=== PATIENT | female | born 1935 | race Two or more races ===

== ENCOUNTER 2020-11-30 14:50 | Inpatient (IN) | payer MEDICARE, OTHER ==
[~2020-11-30] VITALS: Ht 154.9 cm; Wt 68.0 kg
--- NOTE | 2020-12-01 01:10 | NUR ---
GPS ADMISSION NOTE ADMITTED AN 85-Y.O. FEMALE FROM [facility]. BROUGHT IN VIA [facility] BY [facility] PERSONNEL. ADMITTING DX: MAJOR DEPRESSION. PT WAS REPORTED TAKING 50 PILLS ON SUNDAY IN AN ATTEMPT TO END HER LIFE. PT STATED, "MY SIX KIDS HATE ME AND DON'T TALK TO ME BECAUSE I'M A BAD MOTHER. I HAVE NO REASON TO LIVE ANYMORE." PT REPORTED VERY DEPRESSED AND LONELY WITH NO SUPPORT SYSTEM. PT ALSO REPORTED IF SHE WERE TO GO HOME SHE WOULD TRY A DIFFERENT PILL TO KILL HERSELF BECAUSE THE FIRST ONE DID NOT WORK. UPON [id number] ASSESSMENT, PT EXPRESSED SHE REGRETS WHAT SHE HAD TRIED TO DO, SHE DENIES SUICIDAL IDEATION AT THIS TIME. SHE STATES, "I AM HERE TO HAVE TREATMENT FOR MY DEPRESSION." SKIN ASSESSMENT DONE. SKIN INTACT. PT ADVISED OF HER HOLD. BELONGINGS AND CONTRABAND CHECKED AND RECORDED. BOTH MD'S AWARE OF ADMISSION. SAFETY PRECAUTIONS IN PLACE. WILL CONTINUE TO MONITOR Q15MIN FOR SAFETY AND BEHAVIOR.
[2020-12-01 01:30] VITALS: BP 127/78
[2020-12-01] MEDS ORDERED: MAGNESIUM HYDROXIDE 30 ML UDC PO PRN (01:30)
[2020-12-01] MEDS ORDERED: BLOOD SUGAR DIAGNOSTIC 1 EACH STRIP IN ONE (01:30)
[2020-12-01] MEDS ORDERED: ACETAMINOPHEN 325 MG TABLET PO PRN (01:30)
[2020-12-01] MEDS ORDERED: TEMAZEPAM 7.5 MG CAPSULE PO PRN (01:30)
[2020-12-01] MEDS ORDERED: MAG HYDROX/AL HYDROX/SIMETH 30 ML UDC PO PRN (01:30)
[2020-12-01] MEDS ORDERED: ATOR10TA PO (02:01)
[2020-12-01] MEDS ORDERED: CLON1TAB12 PO (02:01)
[2020-12-01] MEDS ORDERED: GLYC1.5T4 PO (02:01)
[2020-12-01] MEDS ORDERED: VENL100T4 PO (02:01)
[2020-12-01] MEDS ORDERED: [UNRECOGNIZED DRUG - CODE] PO (02:01)
[2020-12-01] MEDS ORDERED: HYDR50TA61 PO (02:01)
[2020-12-01] MEDS ORDERED: SUCR1TAB31 PO (02:01)
[2020-12-01] MEDS ORDERED: LACT10SO69 PO (02:01)
[2020-12-01] MEDS ORDERED: OMEP20CA15 PO (02:01)
[2020-12-01] MEDS ORDERED: MELA5TAB PO (02:01)
[2020-12-01] MEDS: LORAZEPAM 0.5 MG TABLET PO PRN (02:25)
--- NOTE | 2020-12-01 02:27 | NUR ---
RN NOTE: ANXIETY PATIENT IS VERY RESTLESS, ANXIOUS, UNABLE TO CONTROL OVER THINKING, HYPERVERBAL, PATIENT REQUESTED TO TAKE MEDICINE TO HELP HER CALM DOWN. PRN ATIVAN 0.5 MG 1 TAB PO ADMINISTERED. WILL CONTINUE TO MONITOR.
[2020-12-01] MEDS ORDERED: LACTULOSE 10 G/15 ML UDC (PYXIS) PO PRN (03:00)
[2020-12-01 06:25] VITALS: BP 127/78
[2020-12-01 08:00] VITALS: BP 116/53
[2020-12-01] MEDS ORDERED: MAGNESIUM GLUCONATE 27 MG PO SCH ×2 (09:00)
[2020-12-01] MEDS: SUCRALFATE 1 G TABLET PO SCH ×4 (09:16→21:13)
[2020-12-01] MEDS: PANTOPRAZOLE 40 MG TABLET.DR PO SCH (09:16)
--- NOTE | 2020-12-01 10:29 | NUR ---
BARON Initial Discharge Plan: Patient currently lives at home [address] [place] [address] Dr Shai Mane, [place] [address]; ([phone]). Patient has a caregiver at home Machelle ([phone]). BARON contacted patient's caregiver Machelle ([phone]) to gather collateral. She stated that she works for pt through [employer] and provides care for 4-5 hours a day. She reported that she has been working for pt for a year and no family has been in contact with pt. She reported that it appears that pt has issues with family. Caregiver would want pt back home upon dc and stated that she will stay with pt and extend her hours. BARON will coordinate with MD and treatment plan to coordinate appropriate discharge.
--- NOTE | 2020-12-01 10:30 | NUR ---
Caregiver Contact: Patient has a caregiver at home Machelle ([phone]). SW contacted patient's caregiver Machelle ([phone]) to gather collateral. She stated that she works for pt through [employer] and provides care for 4-5 hours a day. She reported that she has been working for pt for a year and no family has been in contact with pt. She reported that it appears that pt has issues with family. Caregiver would want pt back home upon dc and stated that she will stay with pt and extend her hours.
[2020-12-01] MEDS: VENLAFAXINE XR 150 MG CAP.SR.24H PO SCH (13:48)
[2020-12-01 16:00] VITALS: BP 113/58
--- NOTE | 2020-12-01 19:01 | NUR ---
mayelin with desmond. requests.
[2020-12-01 20:00] VITALS: BP 97/42
[2020-12-01] MEDS: ATORVASTATIN 10 MG TABLET PO SCH (21:13)
[2020-12-02 07:07] LABS: BILIRUBIN,TOTAL 0.4 mg/dL (0.2-1.0); CALCIUM, SERUM 8.3 mg/dL (8.5-10.1); CREATININE 1.3 mg/dL (0.6-1.3); POTASSIUM 4.4 mmol/L (3.5-5.1); TOTAL PROTEIN, SERUM 5.9 g/dL (6.4-8.2)
[2020-12-02 07:20] LABS: CHOLESTEROL 193 mg/dL (<200); HDL CHOLESTEROL 52 mg/dL (40-60); LDL 116 mg/dL (0-99); TRIGLYCERIDES 123 mg/dL (30-150)
[2020-12-02 08:00] VITALS: BP 132/68
[2020-12-02] MEDS: SUCRALFATE 1 G TABLET PO SCH ×4 (08:16→21:21)
[2020-12-02] MEDS: VENLAFAXINE XR 150 MG CAP.SR.24H PO SCH (08:16)
[2020-12-02] MEDS: PANTOPRAZOLE 40 MG TABLET.DR PO SCH (08:16)
[2020-12-02] MEDS: MAGNESIUM OXIDE 400 MG TABLET PO SCH (09:06)
[2020-12-02 16:00] VITALS: BP 126/64
--- NOTE | 2020-12-02 19:46 | NUR ---
Patient is resting in bed peacefully. Chest rise and fall even and unlabored. no signs of distress. Will monitor for behaviors.
[2020-12-02 20:00] VITALS: BP 139/65
[2020-12-02] MEDS: ATORVASTATIN 10 MG TABLET PO SCH (21:21)
[2020-12-02] MEDS: LORAZEPAM 0.5 MG TABLET PO PRN (21:27)
--- NOTE | 2020-12-02 21:30 | NUR ---
Patient reports feeling scared but is unable to say why but her body can feel it. Given PRN ativan for anxiety. reassured patient that staff is here for anything she needs and will be checked on regularly. patient thanked staff for help. Denies SI at this time.
[2020-12-03] MEDS: SUCRALFATE 1 G TABLET PO SCH ×4 (08:16→21:10)
[2020-12-03] MEDS: PANTOPRAZOLE 40 MG TABLET.DR PO SCH (08:16)
[2020-12-03] MEDS: MAGNESIUM OXIDE 400 MG TABLET PO SCH (08:17)
[2020-12-03] MEDS: VENLAFAXINE XR 150 MG CAP.SR.24H PO SCH (08:17)
[2020-12-03 16:00] VITALS: BP 119/63
--- NOTE | 2020-12-03 19:30 | NUR ---
GPS RN NOTE, RECEIVED PATIENT AWAKE AND IN BED, NO S/S OR COMPLAINTS OF PAIN AT THIS TIME. PATIENT IS DISPLAYING NO S/S OF APPARENT DISTRESS AT THIS TIME. PATIENT BREATHING IS UNLABORED WITH EQUAL RISE AND FALL OF THE CHEST. PATIENT IS ALERT AND ORIENTED X 3 ON ROOM AIR WITH A SPO2 97%. PATIENT IS COMPLIANT WITH MEDICATIONS, ANXIOUS AT TIMES, AND COOPERATIVE. PATIENT DENIES SUICIDAL AND HOMICIDAL IDEATIONS AT THIS TIME. PATIENT ASSISTED WITH TURNING AND REPOSITIONING Q2HR AND PRN FOR COMFORT AND CIRCULATION. PATIENT HAS NO NEEDS AT THIS TIME. PATIENT EDUCATED ON THE USE OF THE CALL CHAIDEZ. PATIENT BED SIDE RAILS UP X 2 FOR SAFETY. PATIENT BED IS LOCKED, LOW, WITH BED ALARM ON. WILL CONTINUE TO MONITOR THIS PATIENT Q15 MINUTES WITH THE HELP OF STAFF TO MAINTAIN SAFETY.
[2020-12-03 20:33] VITALS: BP 150/70
[2020-12-03] MEDS ORDERED: MIRTAZAPINE 15 MG TABLET PO SCH (21:00)
[2020-12-03] MEDS: MIRTAZAPINE 15 MG TABLET PO SCH (21:09)
[2020-12-03] MEDS: ATORVASTATIN 10 MG TABLET PO SCH (21:10)
[2020-12-04 08:00] VITALS: BP 126/69
[2020-12-04] MEDS: SUCRALFATE 1 G TABLET PO SCH ×4 (08:02→21:29)
[2020-12-04] MEDS: PANTOPRAZOLE 40 MG TABLET.DR PO SCH (08:02)
[2020-12-04] MEDS: VENLAFAXINE XR 150 MG CAP.SR.24H PO SCH (08:41)
[2020-12-04] MEDS: MAGNESIUM OXIDE 400 MG TABLET PO SCH (08:41)
--- NOTE | 2020-12-04 09:00 | NUR ---
RN NOTE- PT CALM INTERACTIVE APPROPRIATE MED COMPLIANT CLEAN AND INTERACTIVE
[2020-12-04 16:00] VITALS: BP 119/62
--- NOTE | 2020-12-04 19:30 | NUR ---
GPS RN NOTES RECEIVED PATIENT ON BED,ISOLATED,KAVON,AMBULATE WITH STEADY GAIT,MED COMPLIANT,CONTINENT, BRP.WILL CONTINUE TO MONITOR BEHAVIOR
[2020-12-04 20:19] VITALS: BP 148/72
[2020-12-04] MEDS: ATORVASTATIN 10 MG TABLET PO SCH (21:29)
[2020-12-04] MEDS: MIRTAZAPINE 15 MG TABLET PO SCH (21:30)
--- NOTE | 2020-12-05 07:02 | NUR ---
GPS RN NOTES ASLEEP MOST OF THE NIGHT.
[2020-12-05 08:00] VITALS: BP 121/64
[2020-12-05] MEDS: VENLAFAXINE XR 150 MG CAP.SR.24H PO SCH (08:33)
[2020-12-05] MEDS: MAGNESIUM OXIDE 400 MG TABLET PO SCH (08:33)
[2020-12-05] MEDS: SUCRALFATE 1 G TABLET PO SCH ×4 (08:33→21:55)
[2020-12-05] MEDS: PANTOPRAZOLE 40 MG TABLET.DR PO SCH (08:33)
[2020-12-05 16:00] VITALS: BP 135/62
[2020-12-05 20:06] VITALS: BP 118/59
[2020-12-05] MEDS: MIRTAZAPINE 15 MG TABLET PO SCH (21:53)
[2020-12-05] MEDS: ATORVASTATIN 10 MG TABLET PO SCH (21:55)
[2020-12-05] MEDS: LORAZEPAM 0.5 MG TABLET PO PRN (22:01)
--- NOTE | 2020-12-05 22:01 | NUR ---
GPS RN NOTE - ANXIETY PT NOTED WITH ANXIETY AND AGITATION. PT STATED SHE IS UPSET AND " I DON'T BELONG HER. I AM DEPRESSED AND I WANT TO BE SOMEWHERE WITH PEOPLE OF ALL AGES." PER PT'S REQUEST SHE DOES NOT WANT TO TO BE IN CONTACT WITH ANY OF HER CHILDREN; ONLY WANTS TO SPEAK TO MIGUEL (LINE SERVICE TECHNICIAN). ADMINISTERED ATIVAN ORDERED. WILL REASSESS FOR ANXIETY AND AGITATION IN 30 MINUTES.
--- NOTE | 2020-12-06 06:19 | NUR ---
GPS RN NOTE PT A/OX2-3 WITH DISORGANIZED THOUGHTS. TOLERATING R/A WELL. THROUGHOUT NIGHT, PT SLEPT WELL. DENIES PAIN OR DISCOMFORT. ALL NEEDS MET AT THIS TIME. SAFETY MEASURES IN PLACE. PT IN STABLE CONDITION, WILL ENDORSE PLAN OF CARE TO ONCOMING MORNING RN.
--- NOTE | 2020-12-06 07:30 | NUR ---
PT RECEIVED RESTING COMFORTABLE IN BED. NO S/S OR C/O PAIN OR DISTRESS NOTED. SIDE RAILS UP X2, CALL LIGHT LEFT WITHIN REACH. WILL CONTINUE PLAN OF CARE.
[2020-12-06 08:00] VITALS: BP 115/56
[2020-12-06] MEDS: PANTOPRAZOLE 40 MG TABLET.DR PO SCH (09:10)
[2020-12-06] MEDS: VENLAFAXINE XR 150 MG CAP.SR.24H PO SCH (09:10)
[2020-12-06] MEDS: MAGNESIUM OXIDE 400 MG TABLET PO SCH (09:10)
[2020-12-06] MEDS: SUCRALFATE 1 G TABLET PO SCH ×4 (09:10→21:22)
--- NOTE | 2020-12-06 10:54 | NUR ---
BARON Coordination of Care: Patient will follow up with her primary doctor located at [facility] located at [address] [place] [address] Dr. Pascal, [place] [address]; ([phone]) on December 14 at 3PM. Scheduled by Francisca pairer substandard.
[2020-12-06] MEDS: LORAZEPAM 0.5 MG TABLET PO PRN (11:39)
[2020-12-06 16:00] VITALS: BP 135/69
--- NOTE | 2020-12-06 18:38 | NUR ---
CHANGE OF SHIFT REPORT PT RESTING COMFORTABLY IN BED. NO S/S OR C/O PAIN OR DISTRESS NOTED. SIDE RAILS UP X2. PT KEPT CLEAN, DRY, AND COMFORTABLE. NO SIGNIFICANT CHANGES SINCE PREVIOUS SHIFT. WILL GIVE REPORT TO ROLAND STARR.
[2020-12-06 20:00] VITALS: BP 148/71
[2020-12-06 20:31] VITALS: BP 148/71
[2020-12-06] MEDS: MIRTAZAPINE 15 MG TABLET PO SCH (21:23)
[2020-12-06] MEDS: ATORVASTATIN 10 MG TABLET PO SCH (21:23)
[2020-12-07 08:00] VITALS: BP 124/59
[2020-12-07] MEDS: SUCRALFATE 1 G TABLET PO SCH ×4 (08:08→21:12)
[2020-12-07] MEDS: VENLAFAXINE XR 150 MG CAP.SR.24H PO SCH (08:08)
[2020-12-07] MEDS: PANTOPRAZOLE 40 MG TABLET.DR PO SCH (08:08)
[2020-12-07] MEDS: MAGNESIUM OXIDE 400 MG TABLET PO SCH (08:08)
--- NOTE | 2020-12-07 12:05 | NUR ---
Court Hearing: Patient's court hearing for 5250 was today and it was upheld for GD and danger to self.
[2020-12-07 16:18] VITALS: BP 124/61
[2020-12-07 20:10] VITALS: BP 136/74
[2020-12-07] MEDS: MIRTAZAPINE 15 MG TABLET PO SCH (20:30)
[2020-12-07] MEDS: ATORVASTATIN 10 MG TABLET PO SCH (21:12)
[2020-12-08] MEDS: SUCRALFATE 1 G TABLET PO SCH ×2 (07:30→12:28)
[2020-12-08] MEDS: PANTOPRAZOLE 40 MG TABLET.DR PO SCH (07:30)
[2020-12-08 08:00] VITALS: BP 137/67
[2020-12-08] MEDS: VENLAFAXINE XR 150 MG CAP.SR.24H PO SCH (09:11)
[2020-12-08] MEDS: MAGNESIUM OXIDE 400 MG TABLET PO SCH (09:12)
--- NOTE | 2020-12-08 09:24 | NUR ---
SW Discharge Note: Patient will return back home located at [address] [place] [address] Dr Shai Mane, [place] [address]; ([phone]). Patient's caregiver Peyton ([phone]) will merchandise pickup/receiving associate pt at 12PM. Patients caregiver Peyton ([phone]) is aware and agreeable with discharge. Patient appears to be alert and oriented x2 and happy to be going back home. Patient denies suicidal or homicidal ideation. Patient denies visual/auditory hallucinations. Patient will follow up with her primary doctor located at [facility] located at [address] [place] [address] [place] [address]; ([phone]) on December 14 at 3PM and will provide and monitor patients psychotropic medications. Patient presents with euthymic mood and congruent affect.
--- NOTE | 2020-12-08 14:30 | NUR ---
PATIENT DISCHARGED TO HOME IN STABLE CONDITION ,COOPERATIVE ,MED COMPLIANT ,VS STABLE ,DENIES SUICIDAL IDEATION ,DENIES AUDITORY/VISUAL HALLUCINATION ,DENIES HOMICIDAL IDEATION .MEDICATION REVIEWED AND PRESCRIPTIONS GIVEN TO PATIENT AND PAINTER ASSISTANT .DISCUSSED WITH PAINTER ASSISTANT APPOINTMENTS .GOALS WERE MET COPY OF AFTER CARE AND ALL BELONGINGS RETURNED TO PATIENT .PATIENT DISCHARGED WITH CAREGIVER AT 1430.
== END 2020-12-08 12:30 | disposition home or self-care (01) | DRG 885 ==
LOC: GPS 12-01 00:47
PROVIDERS: ADMIT Psychiatry & Neurology Psychosomatic Medicine; ATTEND Nurse Practitioner Acute Care
DX: F33.2 Major depressive disorder, recurrent severe without psychotic features (principal); F01.50 Vascular dementia, unspecified severity, without behavioral disturbance, psychotic disturbance, mood disturbance, and anxiety; F29 Unspecified psychosis not due to a substance or known physiological condition; F41.9 Anxiety disorder, unspecified; F60.3 Borderline personality disorder; Z88.1 Allergy status to other antibiotic agents; Z88.5 Allergy status to narcotic agent; Z88.0 Allergy status to penicillin; Z91.51 Personal history of suicidal behavior; K27.9 Peptic ulcer, site unspecified, unspecified as acute or chronic, without hemorrhage or perforation; Z91.410 Personal history of adult physical and sexual abuse; E78.5 Hyperlipidemia, unspecified; T50.902D Poisoning by unspecified drugs, medicaments and biological substances, intentional self-harm, subsequent encounter
CPT/HCPCS: 36415; 80053-TC; 80061-TC; 82962-TC; 87081-TC

== ENCOUNTER 2022-09-14 19:33 | Inpatient (IN) | payer MEDICARE, OTHER ==
[~2022-09-14] VITALS: Ht 160 cm; Wt 60.3 kg
[~2022-09-14 19:33] MED LIST: ATOR10TA PO; CLON1TAB12 PO; GLYC1.5T4 PO; HYDR50TA61 PO; LACT10SO69 PO; MELA5TAB PO; OMEP20CA15 PO; SUCR1TAB31 PO; VENL100T4 PO; [UNRECOGNIZED DRUG - CODE] PO
[2022-09-14] MEDS ORDERED: MAG HYDROX/AL HYDROX/SIMETH 30 ML UDC PO PRN (22:30)
[2022-09-14] MEDS ORDERED: TEMAZEPAM 7.5 MG CAPSULE PO PRN (22:30)
[2022-09-14] MEDS ORDERED: MAGNESIUM HYDROXIDE 30 ML UDC PO PRN (22:30)
[2022-09-14] MEDS: LORAZEPAM 0.5 MG TABLET PO PRN (22:55)
[2022-09-14] MEDS ORDERED: BLOOD SUGAR DIAGNOSTIC 1 EACH STRIP IN ONE (23:00)
--- NOTE | 2022-09-14 23:10 | NUR ---
RN NOTES- BS LEVEL 114, NO COVERAGE
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
[2022-09-15 01:15] VITALS: BP 129/69; TEMP 98.3
[2022-09-15 01:20] VITALS: BP 129/69; TEMP 98.3; O2SAT 98
--- NOTE | 2022-09-15 07:00 | NUR ---
SAFETY GLASS INSTALLER OPENING NOTE PATIENT AWAKE, ALERT AND ORIENTED X3. PATIENT IS POLISH SPEAKING. PATIENT DENIES PAIN. NO S/S OF DISCOMFORT NOTED. SAFETY MEASURES IN PLACE: BED LOCKED TO THE LOWEST POSITION, TABLE WITHIN REACH. SIDE RAILS UP X2. CONT. TO MONITOR.
[2022-09-15 07:08] LABS: BASOPHILS % (AUTO) 0.4 % (0.0-2.0); HEMATOCRIT 40 % (33-45); HEMOGLOBIN 13.4 g/dL (11.5-14.8); LYMPHOCYTES # (AUTO) 2.3 K/uL (0.8-4.8); LYMPHOCYTES % (AUTO) 45.7 % (20.0-44.0); MEAN CORPUSCULAR HGB CONC 33 g/dl (31.0-36.0); MEAN CORPUSCULAR VOLUME 91 fL (82-100); MONOCYTES # (AUTO) 0.4 K/uL (0.1-1.30); MONOCYTES % (AUTO) 7.4 % (2.0-12.0); NEUTROPHILS # (AUTO) 2.4 K/uL (1.8-8.9); NEUTROPHILS % (AUTO) 46.5 % (43.0-81.0); PLATELET COUNT (AUTO) 159 K/uL (150-450); RED BLOOD CELL COUNT(AUTO) 4.47 MIL/uL (4.0-5.2); WHITE BLOOD COUNT (AUTO) 5.1 K/uL (4.3-11.0)
[2022-09-15 07:32] LABS: CALCIUM, SERUM 8.9 mg/dL (8.5-10.1); CREATININE 1.1 mg/dL (0.6-1.3); POTASSIUM 3.9 mmol/L (3.5-5.1)
[2022-09-15 08:00] VITALS: BP 109/62; TEMP 97.5; O2SAT 100
[2022-09-15] MEDS: LORAZEPAM 0.5 MG TABLET PO PRN ×2 (08:49→15:28)
--- NOTE | 2022-09-15 09:17 | NUR ---
BARON Clinical Note: Pt placed on a 5150 hold for danger to self. Pt was experiencing anxiety at home and was depressed. Patient currently resides at home located at [address] [place] [address] Dr Sh[place], [place] [address]; ([phone]). Patient would want to return back home upon dc. Patient expressed that the person to notify is her old caregiver and does not want her to be contacted. Pt does not want any family to be contact.
--- NOTE | 2022-09-15 09:17 | NUR ---
BARON Initial Discharge Note: Patient currently resides at home located at [address] [place] [address] Dr Shai Mane, [place] [address]; ([phone]). Patient would want to return back home upon dc. Patient expressed that the person to notify is her old caregiver and does not want her to be contacted. Pt does not want any family to be contact. BARON will work with the MD, family, and treatment team to help coordinate appropriate discharge.
[2022-09-15 10:30] LABS: ALBUMIN 3.1 g/dL (3.4-5.0); BILIRUBIN,DIRECT 0.1 mg/dL (0.0-0.2); BILIRUBIN,TOTAL 0.6 mg/dL (0.2-1.0)
--- NOTE | 2022-09-15 15:28 | NUR ---
DENTURE PROCESSOR NOTE PATIENT VERY ANXIOUS AND WORRY ABOUT HER PRESENT HOSPITALIZATION. PATIENT STATED" I WANT TO GET WELL THEN RETURN HOME". PATIENT REQUESTED MEDICATION TO CALM HER DOWN. PATIENT AGREE TO HAVE ATIVAN PO DIRECTED BY MD. PATIENT WAS ABLE TO GIVE URINE SAMPLE FOR "UA" TO SEND TO LAB. DR. ALANIZ ORDERED STAT.
[2022-09-15 15:39] LABS: BILIRUBIN,URINE NEGATIVE (NEGATIVE); COLOR,URINE YELLOW (YELLOW); LEUKOCYTE ESTERASE ,URINE 3+ (NEGATIVE); NITRITE, URINE NEGATIVE (NEGATIVE); PROTEIN,URINE NEGATIVE (NEGATIVE); UGLUCOSE NEGATIVE (NEGATIVE); UROBILINOGEN,URINE 0.2 EU/dL (0.2)
[2022-09-15 16:00] VITALS: BP 124/87; TEMP 97.9; O2SAT 94
[2022-09-15 16:18] LABS: BACTERIA,URINE 2+ /HPF (None Seen); MUCUS,URINE Few /LPF (None Seen); WBC,URINE 51-80 /HPF (0-3)
[2022-09-15] MEDS: CITALOPRAM HYDROBROMIDE 10 MG TABLET PO SCH (17:25)
--- NOTE | 2022-09-15 18:56 | NUR ---
AUTOMOTIVE REFINISHER CLOSING NOTE PATIENT AWAKE, ALERT AND ORIENTED X3. CALM, VERY HAPPY AT PRESENT. PATIENT IS AMBULATORY ATIVAN EFFECTIVE. PATIENT STARTED ON CELEXA AND PATIENT WILL START ON KLONOPIN TONIGHT. PATIENT HAD URINE TEST DONE TODAY AND RESULT IS "UTI", THE PRIMARY PHYSICIAN WILL ORDER ANTIBIOTICS TONIGHT. SAFETY MEASURES IN PLACE; BED LOCKED TO THE LOWEST POSITION, TABLE WITHIN REACH. I WILL ENDORSE TO THE FOLLOWING NURSE FOR CECI.
--- NOTE | 2022-09-15 20:28 | NUR ---
CALCULUS TEACHER OPENING NOTE RECEIVED PATIENT IN BED AWAKE, ALERT AND ORIENTED X3. PATIENT IS GUATEMALAN SPEAKING. BREATHING NON-LABORED WITH EQUAL RISE AND FALL OF THE CHEST.PATIENT IS DISPLAYING NO S/S OF APPARENT DISTRESS.PATIENT DENIES PAIN AT THIS TIME. NO S/S OF DISCOMFORT NOTED. SAFETY MEASURES IN PLACE: BED LOCKED TO THE LOWEST POSITION, WITH SIDE RAILS UP X2. WILL CONTINUE TO MONITOR FOR SAFETY AND BEHAVIOR.
[2022-09-15] MEDS: SULFAMETH/TRIMETH 800/160 MG 1 UDTAB TABLET PO SCH (21:07)
[2022-09-15] MEDS: clonazePAM 0.5 MG TABLET PO SCH (21:14)
[2022-09-15] MEDS ORDERED: clonazePAM 0.5 MG TABLET PO SCH (22:00)
[2022-09-16 08:00] VITALS: BP 129/64; TEMP 97.6; O2SAT 98
[2022-09-16] MEDS: SULFAMETH/TRIMETH 800/160 MG 1 UDTAB TABLET PO SCH ×2 (08:30→21:26)
[2022-09-16] MEDS: LORAZEPAM 0.5 MG TABLET PO PRN (14:53)
--- NOTE | 2022-09-16 15:42 | NUR ---
teary eyed several times.medicated with ativan.
[2022-09-16 16:00] VITALS: BP 149/71; TEMP 98; O2SAT 97
[2022-09-16] MEDS: CITALOPRAM HYDROBROMIDE 10 MG TABLET PO SCH (17:48)
[2022-09-16 20:00] VITALS: BP 125/81; TEMP 97.3; O2SAT 96
--- NOTE | 2022-09-16 20:24 | NUR ---
COMPUTER ANALYST SUPERVISOR OPENING NOTE RECEIVED PATIENT IN BED AWAKE, ALERT AND ORIENTED X3. PATIENT IS GREENLANDIC SPEAKING. BREATHING NON-LABORED WITH EQUAL RISE AND FALL OF THE CHEST.PATIENT IS DISPLAYING NO S/S OF APPARENT DISTRESS.PATIENT DENIES PAIN AT THIS TIME. NO S/S OF DISCOMFORT NOTED. SAFETY MEASURES IN PLACE: BED LOCKED TO THE LOWEST POSITION, WITH SIDE RAILS UP X2. WILL CONTINUE TO MONITOR FOR SAFETY AND BEHAVIOR.
[2022-09-16] MEDS: clonazePAM 0.5 MG TABLET PO SCH (21:26)
[2022-09-17 08:00] VITALS: BP 139/89; TEMP 98; O2SAT 95
[2022-09-17] MEDS: SULFAMETH/TRIMETH 800/160 MG 1 UDTAB TABLET PO SCH ×2 (08:30→21:20)
[2022-09-17 16:00] VITALS: BP 134/73; TEMP 97.4; O2SAT 99
[2022-09-17] MEDS: CITALOPRAM HYDROBROMIDE 10 MG TABLET PO SCH (16:18)
[2022-09-17 21:07] VITALS: BP 127/67; TEMP 97.9; O2SAT 97
[2022-09-17] MEDS: clonazePAM 0.5 MG TABLET PO SCH (21:20)
[2022-09-17] MEDS: ATORVASTATIN 10 MG TABLET PO SCH (21:21)
[2022-09-18 08:00] VITALS: BP 109/69; TEMP 98.7; O2SAT 99
[2022-09-18] MEDS: SULFAMETH/TRIMETH 800/160 MG 1 UDTAB TABLET PO SCH ×2 (08:48→21:00)
[2022-09-18] MEDS: LORAZEPAM 0.5 MG TABLET PO PRN (08:59)
--- NOTE | 2022-09-18 08:59 | NUR ---
RN- NOTES ATIVAN ADMINISTERED DUE TO PATIENT COMPLAINTS OF INCREASED ANXIETY AND RESTLESSNESS.
[2022-09-18] MEDS ORDERED: LOPERAMIDE HCL (2 MG CAP) 2 MG CAPSULE PO PRN (11:30)
[2022-09-18 16:00] VITALS: BP 125/60; TEMP 97.9; O2SAT 98
[2022-09-18] MEDS: CITALOPRAM HYDROBROMIDE 10 MG TABLET PO SCH (17:07)
--- NOTE | 2022-09-18 18:43 | NUR ---
RN- CLOSING NOTES PATIENT AWAKE, RESTING IN BED, BREATHING EVEN AND NON LABORED WITH NO S/S OF DISTRESS. PATIENT IS COOPERATIVE, GUARDED, DEPRESSED, ANXIOUS, LABILE, SUSPICIOUS, AND EASILY OVERWHELMED. PATIENT IS MEDICATION COMPLIANT. DENIES PLAN FOR SI. WILL CONTINUE TO MONITOR Q 15 MINUTES FOR SAFETY AND BEHAVIOR.
[2022-09-18 20:00] VITALS: BP 136/56; TEMP 97.4; O2SAT 99
[2022-09-18] MEDS: clonazePAM 0.5 MG TABLET PO SCH (21:28)
[2022-09-18] MEDS: ATORVASTATIN 10 MG TABLET PO SCH (21:28)
[2022-09-19 08:00] VITALS: BP 104/55; TEMP 97.9; O2SAT 96
[2022-09-19] MEDS: SULFAMETH/TRIMETH 800/160 MG 1 UDTAB TABLET PO SCH ×3 (09:00→21:00)
[2022-09-19] MEDS: LORAZEPAM 0.5 MG TABLET PO PRN (09:40)
--- NOTE | 2022-09-19 09:41 | NUR ---
given ativan for anxiety.
[2022-09-19] MEDS: ACETAMINOPHEN 325 MG TABLET PO PRN (13:02)
--- NOTE | 2022-09-19 13:03 | NUR ---
given tylenol for agitation ativan not due yet.pt. aggreeable.
--- NOTE | 2022-09-19 15:05 | NUR ---
kari eyed from time to time,easily agitated.
[2022-09-19 16:00] VITALS: BP 123/55; TEMP 98.1; O2SAT 96
[2022-09-19] MEDS: CITALOPRAM HYDROBROMIDE 10 MG TABLET PO SCH (17:03)
[2022-09-19 20:21] VITALS: BP 101/62; TEMP 98.2; O2SAT 97
[2022-09-19 20:24] VITALS: BP 117/64; TEMP 98.2; O2SAT 96
--- NOTE | 2022-09-19 21:00 | NUR ---
RN NOTES PATIENT REFUSED BACTRIM DS .OFFERED AND EXPLAINED STILL REFUSING. WILL CONTINUE TO MONITOR.
[2022-09-19] MEDS: clonazePAM 0.5 MG TABLET PO SCH (21:11)
[2022-09-19] MEDS: ATORVASTATIN 10 MG TABLET PO SCH (21:11)
[2022-09-20 08:00] VITALS: BP 110/69; TEMP 97.7; O2SAT 98
[2022-09-20] MEDS: SULFAMETH/TRIMETH 800/160 MG 1 UDTAB TABLET PO SCH ×3 (08:34→21:00)
--- NOTE | 2022-09-20 11:47 | NUR ---
Court Notification: Pt does not have any supportive contact at this time.
--- NOTE | 2022-09-20 11:48 | NUR ---
Court Hearing: Patient's court hearing for 1359 was today and was upheld for GD.
--- NOTE | 2022-09-20 12:12 | NUR ---
BARON Note: SW received a call from pt's psychotherapist aGbi ([phone]) and left a detailed voicemail of pt's discharge and treatment plan.
[2022-09-20] MEDS: ACETAMINOPHEN 325 MG TABLET PO PRN (13:50)
[2022-09-20 16:00] VITALS: BP 134/66; TEMP 98.6; O2SAT 100
[2022-09-20] MEDS: CITALOPRAM HYDROBROMIDE 10 MG TABLET PO SCH (16:57)
[2022-09-20 20:10] VITALS: BP 115/71; TEMP 98.4; O2SAT 99
[2022-09-20] MEDS: clonazePAM 0.5 MG TABLET PO SCH (21:00)
[2022-09-20] MEDS: ATORVASTATIN 10 MG TABLET PO SCH (21:04)
--- NOTE | 2022-09-20 21:04 | NUR ---
REFUSED MEDICATION Patient in bed, Alert Oriented x3. Behavior calm, no agitaion, on Klonopin. Patient refused Lipitor and Bactirm, inidication/importance and possible side effect explained to patient, stated she cant take Lipitor causes leg cramps and Bactrim causes Diarrhea. Medication Lipitor and Bactirm discarded as packet was already opened.
[2022-09-21 08:00] VITALS: BP 132/68; TEMP 97.8; O2SAT 97
[2022-09-21] MEDS: SULFAMETH/TRIMETH 800/160 MG 1 UDTAB TABLET PO SCH ×2 (08:55→21:00)
--- NOTE | 2022-09-21 08:55 | NUR ---
RN- NOTES PATIENT REFUSED BACTRIM ( ATB) , STATED" IT GIVES ME DIARRHEA". EXPLAINED RISK AND BENEFITS BUT PATIENT STILL REFUSED. OFFERED X3.
[2022-09-21 16:00] VITALS: BP 120/68; TEMP 97.8; O2SAT 100
[2022-09-21] MEDS: CITALOPRAM HYDROBROMIDE 10 MG TABLET PO SCH (17:08)
[2022-09-21 20:00] VITALS: BP 111/63; TEMP 97.5; O2SAT 98
--- NOTE | 2022-09-21 20:20 | NUR ---
TRANSACTIONAL PARALEGAL NOTE RECEIVED PATIENT IN BED AWAKE, ALERT AND ORIENTED X3. PATIENT IS CAMEROONIAN SPEAKING. BREATHING NON-LABORED WITH EQUAL RISE AND FALL OF THE CHEST.PATIENT IS DISPLAYING NO S/S OF APPARENT DISTRESS.PATIENT DENIES PAIN AT THIS TIME. NO S/S OF DISCOMFORT NOTED. SAFETY MEASURES IN PLACE: BED LOCKED TO THE LOWEST POSITION, WITH SIDE RAILS UP X2. WILL CONTINUE TO MONITOR FOR SAFETY AND BEHAVIOR.
[2022-09-21] MEDS: ATORVASTATIN 10 MG TABLET PO SCH ×2 (21:24→21:31)
[2022-09-21] MEDS: clonazePAM 0.5 MG TABLET PO SCH (21:24)
--- NOTE | 2022-09-22 07:49 | NUR ---
Dr. Raygoza gave an order to d/c hold and d/c home and to follow up with the primary doctor. Addendum: 09/22/22 at 0859 by AUGUSTA RODRIGUEZ RN Dr. Raygoza will call prescriptions to the pharmacy at [facility] at [address] [place] [phone] with the tel# [phone].
[2022-09-22 08:00] VITALS: BP 119/56; TEMP 97.9; O2SAT 94
--- NOTE | 2022-09-22 08:04 | NUR ---
SW Discharge Note: Patient will return back home located at [address], [place] [address]; ([phone]). Patient will order uber. Patient has no supportive contact at this time. Patient appears to be alert and oriented x3 and happy to be going back home. Patient denies suicidal or homicidal ideation. Patient denies visual/auditory hallucinations. Patient will follow up with her primary doctor Dr. Bañuelos located at [address], [place] [address]; ([phone]) on October 02 at 12:10PM and will provide and monitor patients psychotropic medications. Patient presents with euthymic mood and congruent affect.
[2022-09-22] MEDS: SULFAMETH/TRIMETH 800/160 MG 1 UDTAB TABLET PO SCH (08:48)
--- NOTE | 2022-09-22 11:15 | NUR ---
RN-DISCHARGE NOTES PATIENT HAD A DISCHARGE ORDER FROM ( PSYCHIATRIST) EMMANUEL IVORY MEDICALLY CLEARED PATIENT FOR DISCHARGE. PATIENT WAS DISCHARGE HOME. PATIENT LEFT THE UNIT IN STABLE CONDITION A/O X4,AMBULATORY STEADY GAIT, NO ACUTE DISTRESS NOTED. PATIENT DID NOT VERBALIZE SI/HI DENIES VISUAL/AUDITORY HALLUCINATIONS AT THE THE OF DISCHARGE. ALL BELONGINGS WAS GIVEN BACK TO THE PATIENT. INSTRUCTED PATIENT TO CALL 911 OR GO TO THE NEAREST EMERGENCY ROOM INCASE OF EMERGENCY TREATMENT NEEDED. MEDICAL RX WAS GIVEN TO THE PATIENT ,DR. AGUERO WILL CALL PATIENT'S PHARMACY FOR THE DISCHARGE MEDICATIONS.
== END 2022-09-22 11:15 | disposition home or self-care (01) | DRG 885 ==
LOC: GPS 21:42
PROVIDERS: ADMIT Psychiatry & Neurology Psychosomatic Medicine; ATTEND Nurse Practitioner Acute Care
DX: F33.2 Major depressive disorder, recurrent severe without psychotic features (principal); N18.30 Chronic kidney disease, stage 3 unspecified; E44.1 Mild protein-calorie malnutrition; N39.0 Urinary tract infection, site not specified; R45.851 Suicidal ideations; F41.9 Anxiety disorder, unspecified; F19.90 Other psychoactive substance use, unspecified, uncomplicated; F60.3 Borderline personality disorder; R41.9 Unspecified symptoms and signs involving cognitive functions and awareness; R79.89 Other specified abnormal findings of blood chemistry; E78.5 Hyperlipidemia, unspecified; I12.9 Hypertensive chronic kidney disease with stage 1 through stage 4 chronic kidney disease, or unspecified chronic kidney disease; E88.09 Other disorders of plasma-protein metabolism, not elsewhere classified; Z87.19 Personal history of other diseases of the digestive system; K76.0 Fatty (change of) liver, not elsewhere classified; K58.0 Irritable bowel syndrome with diarrhea; K29.50 Unspecified chronic gastritis without bleeding; Z20.822 Contact with and (suspected) exposure to COVID-19; Z88.0 Allergy status to penicillin; Z88.1 Allergy status to other antibiotic agents; Z90.710 Acquired absence of both cervix and uterus; Z98.891 History of uterine scar from previous surgery; Z91.199 Patient's noncompliance with other medical treatment and regimen due to unspecified reason
CPT/HCPCS: 36415; 80048-TC; 80061-TC; 80076-TC; 81001; 82962-TC; 84443-TC; 85025-TC; 87081-TC; 87086-TC; 97112-TC; 97116-TC; 97530-TC